=== PATIENT | female | born 1950 | race Caucasian/White ===

== ENCOUNTER 2025-05-24 04:26 | Inpatient (IN) | payer BC, OTHER ==
[~2025-05-24] VITALS: Ht 165.1 cm; Wt 98.7 kg
[2025-05-24] VITALS (12 sets, daily range): BP systolic 100–131; BP diastolic 54–70; PULSE 60–87; RESP 14–19; TEMP 97.6–98; O2SAT 92–97
[~2025-05-24 04:26] MED LIST: ATEN-60 PO; HYDR12.59 PO
--- NOTE | 2025-05-24 05:16 | DVH ---
Exam: CT CT AB PEL WO CON-NO ORAL OR IV History: L pelvic pain Comparison Study: CT CT AB PEL WO CON-NO ORAL OR IV on DOS: 02/24/25, ABPL on DOS: 01/30/22, ABPL on DO S: 07/15/21, ABPL on DOS: 04/03/21 Technique: Multidetector spiral CT of the abdomen was performed from lung bases to pubic symphysis. I maging was performed without IV contrast. Axial, coronal and sagittal multiplanar reformats were obta ined from the axial data set by the technologist. Radiation Dose : 1. Abdomen/Pelvis: CTDIvol 21.41 mGy, DLP 1114.55 mGy*cm. Findings: Evaluation of solid organs is limited due to lack of intravenous contrast use. Lung Bases: Dependent atelectasis. Normal heart size. Cardiomegaly. No pleural or pericardial effusio n. Liver: The liver is normal in size. No focal lesions. Gallbladder and Biliary Tree: Cholelithiasis. Spleen: Unremarkable. Pancreas: The pancreas is grossly normal in appearance. Adrenal Glands: Unremarkable. Kidneys: Moderate left hydroureteronephrosis with distal left ureteral stone obstructing which measur es 0.6 cm (HU 158). Few additional nonobstructing stones are present in the left kidney. Bladder: Grossly unremarkable for degree of distention. Bowel: The stomach is grossly normal in appearance. Colonic diverticulosis. Small bowel and colon are normal in caliber and distribution. The appendix is not visualized; however, no secondary findings o f acute appendicitis identified. Ascites: Absent. Lymphadenopathy: No mesenteric, retroperitoneal or periportal lymphadenopathy. Abdominal Wall and Mesentery: Small fat containing umbilical hernia. Vasculature: Vascular calcifications of the aorta. The visualized abdominal aorta is normal in size a nd caliber. Evaluation of abdominal and pelvic vessels is limited due to lack of intravenous contrast . Pelvic Organs: Unremarkable. Musculoskeletal: Multilevel degenerative changes of the spine. No aggressive focal bony lesions, acut e fractures or dislocation. IMPRESSION: Moderate left hydroureteronephrosis with obstructing distal left ureteral stone measuring 0.6 cm. Cholelithiasis. Colonic diverticulosis. Radiation optimization: All CT scans at this facility use at least one of these dose optimization chantell hniques: automated exposure control mA and/or kV adjustment per patient size (includes targeted exam s where dose is matched to clinical indication) or iterative reconstruction.
--- NOTE | 2025-05-24 05:45 | ED.PDOC ---
General HPI Comments 74-year-old female presented to the ER for the evaluation of left flank pain started 2 hours back. Patient reports intractable left-sided pain associated nausea and vomiting, 1 X, nonbloody for the past 2 hours, she has a kidney stone in the past, pain is radiating to the back, also reports chills but denies fever at this time. Pain is sharp and reports 9/10 in intensity, patient has a moderate distress. Denies constipation, diarrhea, sick contacts, travel history. She also reports that she has been unable to void or defecate for the past 6 hours, she has the urge she could not urinate or defecate. Denies shortness of breath, orthopnea, cough. Denies dysuria, hematuria. Past medical history: Hypertension, left ureteral stones Patient seen and examined. Patient has left-sided CVA tenderness and left-sided flank tenderness. CT abdomen shows obstructing calculus. Chest x-ray pending. Patient has bilateral crackles and wheezing on auscultation. Chief Complaint: Pelvic Pain Time Seen by MD: 04:49 Reviewed notes: Nurses Notes Allergies: Coded Allergies: Codeine (Verified Allergy, Unknown, 02/16/22) Penicillins (Verified Allergy, Unknown, 02/16/22) Tetracycline (Verified Allergy, Unknown, 02/16/22) Home Meds Reported Medications Atenolol (Atenolol) 25 Mg Tab, 25 MG PO BID for 30 Days, MG 07/15/21 Hydrochlorothiazide (Hydrochlorothiazide) 12.5 Mg Cap, 1 CAP PO HS, #30 CAP 5 Refills 07/15/21 Information Source: Patient Mode of Arrival: Ambulatory Severity: Moderate Past Medical History Past Medical History (Other): Hypertension, ureteral stones Constitutional: reports: chills EENTM: denies: blurred vision, double vision, ear bleeding, ear discharge, ear drainage, ear pain, ear ringing, eye pain, eye redness, hearing loss, mouth pain, mouth swelling, nasal discharge, nose bleeding, nose congestion, nose pain, photophobia, tearing, throat pain, throat swelling, voice changes, others Respiratory: denies: cough, hemoptysis, orthopnea, SOB at rest, shortness of breath, SOB with excertion, stridor, wheezing, others Cardiovascular: denies: chest pain, dizzy spells, diaphoresis, Dyspnea on exertion, edema, irregular heart beat, left arm pain, lightheadedness, palpitations, PND, syncope, others Gastrointestinal: reports: abdominal pain, nausea, vomiting Genitourinary: reports: flank pain Neurological: denies: dizziness, fainting, headache, left sided numbness, left sided weakness, numbness, paresthesia, pre-existing deficit, right sided numbness, right sided weakness, seizure, speech problems, tingling, tremors, weakness, others Musculoskeletal: denies: back pain, gout, joint pain, joint swelling, muscle pain, muscle stiffness, neck pain, others Integumetry: denies: bruises, change in color, change in hair/nails, dryness, laceration, lesions, lumps, rash, wounds, others Allergic/Immunocompromised: denies: Difficulty Healing, Frequent Infections, Hives, Itching, others Hematologic/Lymphatic: denies: anemia, blood clots, easy bleeding, easy bruisi ng, swollen glands, others Endocrine: denies: excessive hunger, excessive sweating, excessive thirst, exce ssive urination, flushing, intolerance to cold, intolerance to heat, unexplained weight gain, unexplained weight loss, others Psychiatric: denies: anxiety, bipolar disorder, depression, hopeless, panic disorder, schizophrenia, sleepless, suicidal, others Physical Exam General Appearance: Moderate Distress HEENT: Cornea (L), Cornea (R) Neck: NOT DONE Respiratory: Crackles, Decreased Breath Sounds, Wheezing Cardiovascular: No Murmur, Regular Rate/Rhythm Breast Exam: Deferred Gastrointestinal: No Organomegaly, No Pulsatile Mass, Normal Bowel Sounds, Soft, Tenderness, Other (Left-sided and CVA tenderness) Genitalia: Deferred Pelvic: Deferred Rectal: Deferred Extremities: No calf tenderness, Normal capillary refill, Normal inspection, Normal range of motion, Non-tender, No pedal edema Neurologic: NOT DONE Cerebellar Function: NOT DONE Reflexes: NOT DONE Skin: Dry Lymphatic: NOT DONE Was a procedure done? Was a procedure done?: No Differential Diagnosis Kidney stone (Female): Musculoskeletal pain, Pancreatitis, Pyelonephritis, Urolithiasis Kidney stone (Male): Urinary obstruction, Urolithiasis Urinary Problem (Male): Bladder Outlet, Bladder Obstruction X-Ray, Labs, Meds, VS Vital Signs Date Time Temp Pulse Resp B/P (MAP) Pulse Ox O2 Delivery O2 Flow Rate FiO2 05/24/25 04:28 97.7 57 20 153/100 99 97.7 Lab Test 05/24/25 05:24 Range/Units White Blood Count Pending Red Blood Count Pending Hemoglobin Pending Hematocrit Pending Mean Corpuscular Volume Pending Mean Corpuscular Hemoglobin Pending Mean Corpuscular Hemoglobin Concent Pending Red Cell Distribution Width Pending Platelet Count Pending Mean Platelet Volume Pending Neutrophils (%) (Auto) Pending Lymphocytes (%) (Auto) Pending Monocytes (%) (Auto) Pending Basophils (%) (Auto) Pending Neutrophils # (Auto) Pending Lymphocytes # (Auto) Pending Monocytes # (Auto) Pending Sodium Level Pending Potassium Level Pending Chloride Level Pending Carbon Dioxide Level Pending Anion Gap Pending Blood Urea Nitrogen Pending Creatinine Pending Glomerular Filtration Rate Calc Pending BUN/Creatinine Ratio Pending Serum Glucose Pending Lactic Acid Level Pending Calcium Level Pending Total Bilirubin Pending Aspartate Amino Transferase (AST) Pending Alanine Aminotransferase (ALT) Pending Alkaline Phosphatase Pending B-Type Natriuretic Peptide Pending Total Protein Pending Albumin Pending X-Ray, Labs, Meds, VS Comment CT abdomen shows Moderate left hydroureteronephrosis with obstructing distal left ureteral stone measuring 0.6 cm. Cholelithiasis. Colonic diverticulosis. Radiation optimization: All CT scans at this facility use at least one of these dose optimization techniques: automated exposure control mA and/or kV adjustment per patient size (includes targeted exams where dose is matched to clinical indication) or iterative reconstruction. Images Reviewed?: Images reviewed and evaluated by me Time of 1ST Reevaluation: 05:30 Reevaluation 1ST: Unchanged Time of 2ND Reevaluation: 06:00 Reevaluation 3RD: Unchanged Consultation: PCP Patient Education/Counseling: Diagnosis, Treatment Family Education/Counseling: Diagnosis, Treatment SEPSIS Sepsis Screen Date sepsis recognized/suspect: May 24, 2025 Time Sepsis recognized/suspect: 043 Recent Procedure: No On Antibiotic Therapy: No Respiratory Rate >20: No Heart Rate >90: No Temp<36 C (96.8 F) or >38.3 C: No SBP <90 or MAP <65 mmHG: No New Acute Mental Status Change: No Is the patient on CPAP, BIPAP,: No Physician Orders Ct Ab Pel Wo Con-No Oral Or Iv (05/24/25 04:33) Comprehensive Metabolic Panel (05/24/25 04:35) Complete Blood Count (05/24/25 04:35) Lactic Acid W/ Reflex Order (05/24/25 04:35) Urine Dip (05/24/25 ) Process Designer (05/24/25 ) B-Type Natriuretic Peptide (05/24/25 05:01) Vital Signs Date Time Temp Pulse Resp B/P (MAP) Pulse Ox O2 Delivery O2 Flow Rate FiO2 05/24/25 04:28 97.7 57 20 153/100 99 97.7 Laboratory Tests Test 05/24/25 05:24 Lactic Acid Level Pending White Blood Count Pending Departure 1 Departure Time of Disposition: 05:56 Impression: Primary Impression: Obstruction of left ureter Additional Impressions: Left flank pain Kidney stone Hydronephrosis Disposition: ADMITTED INPATIENT Condition: Fair Comments Patient will be admitted to this facility for workup of left-sided obstructive uropathy. With hydronephrosis. Critical Care Note Critical Care Time?: No Stability Stability form required: MARIO Mcdaniel RESIDENT May 24, 2025 05:45
[2025-05-24] MEDS: HYDROcodone-ACET 5/325MG TAB PO ONE (05:51)
[2025-05-24] MEDS: TAMSULOSIN HYDROCHLORIDE 0.4 MG CAP PO ONE (05:51)
[2025-05-24] MEDS: fentaNYL CITRATE 100 MCG/2 ML VL IV ONE (06:05)
[2025-05-24 06:19] LABS: Hematocrit 47.3 % (36.0-46.0); Hemoglobin 16.4 g/dL (12.2-16.2); Mean Corpuscular Hemoglobin 32.8 pg (28.0-32.0); Mean Corpuscular Volume 94.5 fL (80.0-100.0); Nucleated Red Blood Cells % 0.0 %
[2025-05-24 06:32] LABS: Alanine Aminotransferase 38 U/L (7-40); Albumin 4.5 g/dL (3.2-4.8); Alkaline Phosphatase 109 U/L (46-116); Anion Gap 14 (5-15); BUN/Creatinine Ratio 16.3 (10.0-20.0); Bilirubin, Total 0.6 mg/dL (0.2-1.0); Blood Urea Nitrogen 15 mg/dL (9-23); Calcium 9.9 mg/dL (8.7-10.4); Carbon Dioxide 26 mmol/L (20-31); Chloride 101 mmol/L (98-107); Sodium 141 mmol/L (136-145); Total Protein 7.0 g/dL (5.7-8.2)
[2025-05-24 06:33] LABS: Glucose 248 mg/dL (74-106); Lactic Acid w/Reflex 3.3 mmol/L (0.4-2.0); Potassium 3.5 mmol/L (3.5-5.1)
[2025-05-24] MEDS: SODIUM CHLORIDE 0.9% 1,000 ML IV ONE ×2 (06:50→08:42)
--- NOTE | 2025-05-24 07:45 | DVH ---
CHEST RADIOGRAPH Indication: crackles Technique: Single frontal view of the chest was obtained Comparison: CXRP on DOS: 07/15/21, CXRP on DOS: 06/14/21 FINDINGS: Lines and Tubes: None Lungs: No focal consolidation. Pleura: No effusion. No pneumothorax. Cardiomediastinal contours: Unremarkable Bones: No acute osseous abnormality. IMPRESSION: No acute cardiopulmonary disease.
[2025-05-24 09:11] LABS: Urine Protein, UAD Negative (Negative)
[2025-05-24] MEDS ORDERED: HYDROcodone-ACET 5/325MG TAB PO PRN (09:30)
[2025-05-24] MEDS ORDERED: NITROGLYCERIN 0.4 MG SL TAB SL PRN (09:30)
[2025-05-24] MEDS ORDERED: MORPHINE SULFATE 4 MG/ML SYR/VIAL IV PRN (10:00)
[2025-05-24] MEDS: ONDANSETRON HCL 4 MG/2 ML VIAL IV PRN (10:00)
[2025-05-24] MEDS: MORPHINE SULFATE 4 MG/ML SYR/VIAL IV PRN (10:00)
[2025-05-24] MEDS: SODIUM CHLORIDE 0.9% 1,000 ML IV SCH (10:07)
[2025-05-24 10:37] LABS: INR 1.06 (0.9-1.15); Partial Thromboplastin Time 26.0 SEC (24.5-34.5); Prothrombin Time 11.2 sec (9.3-11.8)
[2025-05-24] MEDS ORDERED: IODIXANOL 320MG/ML 100ML BTL IV ONE (13:55)
[2025-05-24] MEDS ORDERED: fentaNYL CITRATE 100 MCG/2 ML VL ONE (13:57)
[2025-05-24] MEDS ORDERED: LIDOCAINE 2%HCL (LOCAL ANESTH.) INJ 20ML MDV ONE (13:58)
[2025-05-24] MEDS ORDERED: MIDAZOLAM HCL 2MG/2ML 2ml VIAL (1mg/ml) ONE (13:58)
--- NOTE | 2025-05-24 14:58 | DVH ---
XY PERCUTANEOUS NEPHROSTOMY, HISTORY: NEPHRO TUBE PLACEMENT for obstructive uropathy from a left ureteral stone with hydronephrosi s. PROCEDURE: Informed consent was obtained. The patient was placed on the fluoroscopic table in a prone position and IV sedation administered. The left flank was prepped with chlorhexidine which was allow ed to dry and draped in the usual sterile fashion. Time out was performed. and the soft tissues infil trated with 1% lidocaine local anesthetic. Utilizing ultrasound guidance, a 21 gauge Chiba needle was advanced from a posterolateral approach into an lower pole calyx, and a small amount of contrast was injected under fluoroscopy to confirm positioning. Over a mandril wire, exchange was made to a non-v ascular access set, through which was advanced an 0.035 wire. Following serial dilation, an 8.5 frenc h multipurpose nephrostomy catheter was placed with tip pigtailed within the renal pelvis. Position w as confirmed with antegrade nephrostogram. The catheter was secured in place and connected to gravity drainage. A sterile dressing was applied. No immediate complication was identified. DAP 350 FLUOROSCOPY TIME: 1.7 minutes. CONTRAST USED: 15 mL. SEDATION: Dr. Kevin Martell was personally responsible for the administration of moderate sedation during the procedure performed, including the use of an independent trained observer who had no other duties during the procedure. The drugs utilized were IV fentanyl and versed (see nursing log for details). The total time of supervision by the attending physician was approximately 30 minutes. FINDINGS: Moderate left hydronephrosis involving the calyces/renal pelvis/ureter. New 8.5 [place] ne phrostomy tube via a posterior mid/lower pole calyceal access, with loop coiled within the renal pelv is. IMPRESSION: Left hydronephrosis due to obstructive ureteral stone, status post placement of 8.5 [place] left per cutaneous nephrostomy catheter. PLAN: Routine catheter care.
--- NOTE | 2025-05-24 14:58 | DVH ---
XY PERCUTANEOUS NEPHROSTOMY, HISTORY: NEPHRO TUBE PLACEMENT for obstructive uropathy from a left ureteral stone with hydronephrosi s. PROCEDURE: Informed consent was obtained. The patient was placed on the fluoroscopic table in a prone position and IV sedation administered. The left flank was prepped with chlorhexidine which was allow ed to dry and draped in the usual sterile fashion. Time out was performed. and the soft tissues infil trated with 1% lidocaine local anesthetic. Utilizing ultrasound guidance, a 21 gauge Chiba needle was advanced from a posterolateral approach into an lower pole calyx, and a small amount of contrast was injected under fluoroscopy to confirm positioning. Over a mandril wire, exchange was made to a non-v ascular access set, through which was advanced an 0.035 wire. Following serial dilation, an 8.5 frenc h multipurpose nephrostomy catheter was placed with tip pigtailed within the renal pelvis. Position w as confirmed with antegrade nephrostogram. The catheter was secured in place and connected to gravity drainage. A sterile dressing was applied. No immediate complication was identified. DAP 350 FLUOROSCOPY TIME: 1.7 minutes. CONTRAST USED: 15 mL. SEDATION: Dr. Kevin Martell was personally responsible for the administration of moderate sedation during the procedure performed, including the use of an independent trained observer who had no other duties during the procedure. The drugs utilized were IV fentanyl and versed (see nursing log for details). The total time of supervision by the attending physician was approximately 30 minutes. FINDINGS: Moderate left hydronephrosis involving the calyces/renal pelvis/ureter. New 8.5 [place] ne phrostomy tube via a posterior mid/lower pole calyceal access, with loop coiled within the renal pelv is. IMPRESSION: Left hydronephrosis due to obstructive ureteral stone, status post placement of 8.5 ind[place] left per cutaneous nephrostomy catheter. PLAN: Routine catheter care.
[2025-05-24] MEDS ORDERED: DEXTROSE (50%) 50ML SYRG IV PRN (16:15)
--- NOTE | 2025-05-24 16:17 | DVHHP2 ---
Admitting Diagnosis: Obstructive Uropathy History of Present Illness HPI Patient is a 74-year-old female with past medical history of hypertension who presents with complaints of left flank pain. Imaging via CT abdomen and pelvis revealed moderate left hydronephrosis with obstructing distal left ureteral stone measuring 0.6 cm. Patient was noted to have significant pain. CBC showed leukocytosis of 12. Renal function was within normal limits and not elevated. Lactic acid was elevated at 3.3. Glucose was elevated to 48. Patient was admitted for nephrostomy tube placement per urology recommendations. Home Meds Reported Medications Atenolol (Atenolol) 25 Mg Tab, 25 MG PO BID for 30 Days, MG 07/15/21 Hydrochlorothiazide (Hydrochlorothiazide) 12.5 Mg Cap, 1 CAP PO HS, #30 CAP 5 Refills 07/15/21 Past Medical History Cardiac: HTN Review of Systems Gastrointestinal: Abdominal Pain H&P Exam Vital Signs Vital Signs Date Time Temp Pulse Resp B/P (MAP) Pulse Ox O2 Delivery O2 Flow Rate FiO2 05/24/25 12:00 67 12 127/58 (81) 94 05/24/25 08:50 Room Air* 0 21 05/24/25 08:17 98.1 98.1 General Appeara: Well developed Back Exam: Left CVA tenderness SEPSIS Sepsis Screen Date sepsis recognized/suspect: May 24, 2025 Time Sepsis recognized/suspect: 043 Recent Procedure: No On Antibiotic Therapy: No Respiratory Rate >20: No Heart Rate >90: No Temp<36 C (96.8 F) or >38.3 C: No SBP <90 or MAP <65 mmHG: No New Acute Mental Status Change: No Is the patient on CPAP, BIPAP,: No Physician Orders Admit (05/24/25 09:16) Code Status (05/24/25 09:16) Sodium Chloride 0.9% (05/24/25 09:30) Acetaminophen Tablet (Tylenol Tablet) (05/24/25 09:30) Hydrocodone-Acet 5/325mg Tab ([place] 5/32 (05/24/25 09:30) Ondansetron Hcl (Zofran) (05/24/25 09:30) Complete Blood Count (05/25/25 04:00) Comprehensive Metabolic Panel (05/25/25 04:00) Npo (Nothing By Mouth) Diet (05/24/25 Breakfast) Nitroglycerin Sublingual (Ntrostat Subli (05/24/25 09:30) Stat Ekg For Chest Pain (05/24/25 09:16) Notify Of Changes From Base (05/24/25 09:16) Tool Supervisor For 24 Hours (05/24/25 09:16) Emergency Dysrhythmia Protocol (05/24/25 09:16) Rhythm Strips Once Every Shift (05/24/25 09:16) Oxygen By Nasal Cannula (05/24/25 09:16) * Radiologist Consult (05/24/25 09:16) Morphine Sulfate Injection (05/24/25 10:00) Morphine Sulfate Injection (05/24/25 10:00) Us Guidance For Needle Placeme (05/24/25 13:59) Percutaneous Nephrostomy (05/24/25 14:38) Post Cath Vital Signs Q 15min (05/24/25 15:13) Vital Signs Date Time Temp Pulse Resp B/P (MAP) Pulse Ox O2 Delivery O2 Flow Rate FiO2 05/24/25 12:00 67 12 127/58 (81) 94 05/24/25 12:00 67 05/24/25 11:00 66 16 128/62 05/24/25 10:00 71 12 130/52 (78) 96 05/24/25 10:00 72 18 137/69 05/24/25 08:50 61 19 97 Room Air* 0 21 05/24/25 08:17 98.1 61 19 142/64 (90) 97 98.1 Laboratory Tests Test 05/24/25 05:24 05/24/25 07:28 Lactic Acid Level 3.3 mmol/L (0.4-2.0) *H 2.8 mmol/L (0.4-2.0) *H White Blood Count 12.0 10^3/uL (4.4-10.8) H Medications Medications Dose Ordered Sig/Jh Route Start Time Stop Time Status Last Admin Dose Admin Acetaminophen/ Hydrocodone Bitart 1 tab ONCE ONCE PO 05/24/25 05:15 05/24/25 05:16 DC 05/24/25 05:51 1 TAB Ceftriaxone Sodium 50 ml @ 100 mls/hr ONCE ONCE IV 05/24/25 06:15 05/24/25 06:44 DC 05/24/25 08:20 100 MLS/HR Fentanyl Citrate 100 mcg ONCE ONCE IV 05/24/25 05:30 05/24/25 05:31 DC 05/24/25 06:05 100 MCG Morphine Sulfate 2 mg Q4HPRN PRN IV 05/24/25 10:00 05/24/25 10:00 2 MG Ondansetron HCl 4 mg Q4HP PRN IV 05/24/25 09:30 05/24/25 10:00 4 MG Sodium Chloride 1,000 ml @ 60 mls/hr [id number] IV 05/24/25 09:30 05/24/25 10:07 60 MLS/HR Sodium Chloride 1,000 ml @ 1,000 mls/hr Q1H ONCE IV 05/24/25 06:45 05/24/25 07:44 DC 05/24/25 06:50 1,000 MLS/HR Sodium Chloride 1,000 ml @ 1,000 mls/hr Q1H ONCE IV 05/24/25 08:15 05/24/25 09:14 DC 05/24/25 08:42 1,000 MLS/HR Tamsulosin HCl 0.4 mg ONCE ONCE PO 05/24/25 05:15 05/24/25 05:16 DC 05/24/25 05:51 0.4 MG Labs/Xrays Labs Test 05/24/25 10:04 05/24/25 08:03 05/24/25 07:28 05/24/25 05:24 Range/Units Prothrombin Time 11.2 9.3-11.8 sec Prothrombin Time INR 1.06 0.9-1.15 Activated Partial Thromboplast Time 26.0 24.5-34.5 SEC Urine Color Light-yellow Yellow Urine Clarity Turbid H Clear Urine pH 7.0 5.0-9.0 Urine Specific [place] 1.018 1.001-1.035 Urine Protein Negative Negative Urine Ketones 1+ H Negative Urine Blood 3+ H Negative /uL Urine Nitrite Negative Negative Urine Bilirubin Negative Negative Urine Urobilinogen Normal Negative mg/dL Urine Leukocyte Esterase Trace Negative /uL Urine Glucose 3+ H Normal mg/dL Lactic Acid Level 2.8 *H 0.4-2.0 mmol/L White Blood Count 12.0 H 4.4-10.8 10^3/uL Red Blood Count 5.01 4.0-5.20 10^6/uL Hemoglobin 16.4 H 12.2-16.2 g/dL Hematocrit 47.3 H 36.0-46.0 % Mean Corpuscular Volume 94.5 80.0-100.0 fL Mean Corpuscular Hemoglobin 32.8 H 28.0-32.0 pg Mean Corpuscular Hemoglobin Concent 34.7 32.0-36.0 g/dL Red Cell Distribution Width 12.5 11.8-14.3 % Platelet Count 191 140-450 10^3/uL Mean Platelet Volume 9.5 6.9-10.8 fL Neutrophils (%) (Auto) 79.5 37.0-80.0 % Lymphocytes (%) (Auto) 13.8 10.0-50.0 % Monocytes (%) (Auto) 5.0 0.0-12.0 % Eosinophils (%) (Auto) 1.2 0.0-7.0 % Basophils (%) (Auto) 0.5 0.0-2.0 % Neutrophils # (Auto) 9.5 H 1.6-8.6 10 ^3/uL Lymphocytes # (Auto) 1.7 0.4-5.4 10 ^3/uL Monocytes # (Auto) 0.6 0-1.3 10 ^3/uL Eosinophils # (Auto) 0.1 0-0.8 10 ^3/uL Basophils # (Auto) 0.1 0-0.2 10 ^3/uL Nucleated Red Blood Cells 0.0 % Sodium Level 141 136-145 mmol/L Potassium Level 3.5 3.5-5.1 mmol/L Chloride Level 101 98-107 mmol/L Carbon Dioxide Level 26 20-31 mmol/L Anion Gap 14 5-15 Blood Urea Nitrogen 15 9-23 mg/dL Creatinine 0.92 0.550-1.02 mg/dL Glomerular Filtration Rate Calc 66 >90 mL/min BUN/Creatinine Ratio 16.3 10.0-20.0 Serum Glucose 248 H 74-106 mg/dL Calcium Level 9.9 8.7-10.4 mg/dL Total Bilirubin 0.6 0.2-1.0 mg/dL Aspartate Amino Transferase (AST) 37 13-40 U/L Alanine Aminotransferase (ALT) 38 7-40 U/L Alkaline Phosphatase 109 46-116 U/L B-Type Natriuretic Peptide 27.45 0-100 pg/mL Total Protein 7.0 5.7-8.2 g/dL Albumin 4.5 3.2-4.8 g/dL Assessment/Plan Primary Diagnosis 1. Obstructive Uropathy due to Nephrolithiasis 2. Hypertension 3. Morbid Obesity 4. Hyperglycemia 5. Hypertension Plan Plan: -Interventional radiology consulted for left nephrostomy tube placement - Discussed plan of care with urology, Dr. Sharp who recommended outpatient follow-up for lithotripsy - Ceftriaxone 1 g IV daily. Patient reports penicillin allergy but tolerated ceftriaxone dose without complication. Will continue to monitor. - Flomax 0.4 mg daily - Strict I's and O's - Pain medications as listed per MAR - Urine cultures ordered - Hemoglobin A1c ordered due to hyperglycemia. Insulin ordered - Full code - Daily CBC and BMP Plan discussed with: Patient SHADINASEEM Youssef DO May 24, 2025 16:17
[2025-05-24] MEDS: ACCU-CHEK COMFORT CURVE STRIP VI SCH (18:18)
[2025-05-24] MEDS: InsuLIN REG 1unit/0.01ml Soln (100units/ml) SC SCH (18:19)
[2025-05-24] MEDS: TAMSULOSIN HYDROCHLORIDE 0.4 MG CAP PO SCH (18:20)
[2025-05-24] MEDS: INSULIN LANTUS (GLARGINE) 1 /0.01ml (100units/ml) SC SCH (21:41)
[2025-05-25] MEDS: ACETAMINOPHEN 325 MG TAB PO PRN (00:12)
[2025-05-25 01:00] VITALS: BP 111/57; PULSE 73; RESP 18; TEMP 98.1; O2SAT 93
[2025-05-25 05:00] VITALS: BP 112/59; PULSE 67; RESP 18; TEMP 98.4; O2SAT 91
[2025-05-25 06:39] LABS: Hematocrit 39.3 % (36.0-46.0); Hemoglobin 13.8 g/dL (12.2-16.2); Mean Corpuscular Hemoglobin 33.4 pg (28.0-32.0); Mean Corpuscular Volume 95.5 fL (80.0-100.0); Nucleated Red Blood Cells % 0.1 %
[2025-05-25 07:04] LABS: Alanine Aminotransferase 24 U/L (7-40); Albumin 3.5 g/dL (3.2-4.8); Alkaline Phosphatase 67 U/L (46-116); Anion Gap 12 (5-15); BUN/Creatinine Ratio 21.5 (10.0-20.0); Bilirubin, Total 0.9 mg/dL (0.2-1.0); Blood Urea Nitrogen 17 mg/dL (9-23); Carbon Dioxide 27 mmol/L (20-31); Chloride 102 mmol/L (98-107); Sodium 141 mmol/L (136-145)
[2025-05-25 07:05] LABS: Calcium 8.3 mg/dL (8.7-10.4); Glucose 146 mg/dL (74-106); Potassium 3.1 mmol/L (3.5-5.1); Total Protein 5.5 g/dL (5.7-8.2)
[2025-05-25] MEDS ORDERED: LEVO500T91 PO (07:29)
--- NOTE | 2025-05-25 07:41 | DVHDS2 ---
New Physician D'charge PN Admitting Diagnosis Admitting Diagnosis kidney stone Discharge Diagnosis nephrolithiasis s/p PNT placement Operations or Procedures PNT placement by IR Reason(s) For Hospitalization Surgery Hospital Course 74 F who comes to ER with L flank pain. CT abdomen showed L obstructing stone and hydronephrosis moderate, please refer to the full CT report for details. She was admitted and started on IVF hydration and IV ABx, Urology recommended IR placement of percutaneous nephrostomy tube which was done yesterday, PNT is draining appropriately and WBC nml this AM with preserved renal function. Urology recommends outpt follow up with [facility] and for now patient will dc home with PNT in place, [facility] to arrange for all outpt follow up and scripts for PO Abx sent to patients pharmacy on file. Treatment Plan Discharge Condition of Discharge Good Disposition Home with Health Services Discharge Instructions Diet: Cardiac 2g Na,low cholest Activity: No Restrictions, As Tolerated Medications: see med sheet Follow Up Care Follow Up/Referral: pcp urology Discharge Statement: "Patient was advised to return to the ER or call 911 if any headaches, dizziness, shortness of breath, chest pain, abdominal pain, bleeding, fevers, or worsening of medical condition. Patient was counseled about treatment plan, medications, possible side effects, patientverbalized understanding. All questions were answered to the best of my ability. This discharge took greater then 30 minutes in planning, reviewing documentation, counseling the patient, and discussing with other team members." CARLITO VILLARREAL MD May 25, 2025 07:41
[2025-05-25 09:00] VITALS: BP 135/94; PULSE 98; RESP 20; TEMP 97.4; O2SAT 94
[2025-05-25] MEDS: POTASSIUM CHL 20 Meq TABLET PO ONE (10:49)
[2025-05-25 12:45] VITALS: BP 122/65; PULSE 69; RESP 17; TEMP 36.3; O2SAT 96
[2025-05-25 13:00] VITALS: BP 135/78; PULSE 76; RESP 17; TEMP 98.2; O2SAT 95
== END 2025-05-25 15:45 | disposition home or self-care (01) | DRG 694 ==
LOC: ER 04:26 → OVERFLOW 09:16 → EAST 17:28
PROVIDERS: ADMIT Student in an Organized Health Care Education/Training Program; ATTEND Student in an Organized Health Care Education/Training Program
PROC: 0T9130Z Drainage of Left Kidney with Drainage Device, Percutaneous Approach (ICD-10-PCS; principal; 2025-05-24)
PROC: BT12YZZ Fluoroscopy of Left Kidney using Other Contrast (ICD-10-PCS; 2025-05-24)
DX: N13.2 Hydronephrosis with renal and ureteral calculous obstruction (principal); E66.01 Morbid (severe) obesity due to excess calories; I10 Essential (primary) hypertension; R73.9 Hyperglycemia, unspecified; Z88.0 Allergy status to penicillin; Z79.899 Other long term (current) drug therapy; Z88.1 Allergy status to other antibiotic agents; Z88.5 Allergy status to narcotic agent; R39.852 Costovertebral (angle) tenderness, left side; Z87.442 Personal history of urinary calculi; Z68.36 Body mass index [BMI] 36.0-36.9, adult
CPT/HCPCS: 36415; 71045; 74176; 74425; 76942; 80053; 81003; 82962; 83036; 83605; 83880; 85025; 85610; 85730; 87040; 96365; 96375; 99152; G0378; J1815; J2250; J2405; Q9967

== ENCOUNTER 2025-06-01 07:08 | Emergency (ER) | payer BC ==
[~2025-06-01] VITALS: Ht 165.1 cm; Wt 94.5 kg
[~2025-06-01 07:08] MED LIST changes: +LEVO500T91 PO
--- NOTE | 2025-06-01 07:39 | ED.PDOC ---
General HPI Comments 74 y/o F, with PMHx of kidney stones presents to the ED for CC of hematuria. Patient states, she recently underwent a lithotripsy procedure on 05/25/25 and has now been experiencing hematuria sudden onset, 0530 this morning (06/01/25). Patient relays, following procedure to have had no urinary symptoms up until today (06/01/25). Patient denies dysuria, abdominal pain, back pain, fever or flank pain. No other symptoms or modifying factors are present at this time. Chief Complaint: Urinary Time Seen by MD: 07:30 Reviewed notes: Nurses Notes, Medications, Allergies Allergies: Coded Allergies: Codeine (Verified Allergy, Unknown, 02/16/22) Erythromycin (Unverified Allergy, Unknown, 02/24/25) Penicillins (Verified Allergy, Unknown, 02/16/22) Tetracycline (Verified Allergy, Unknown, 02/16/22) Home Meds Active Scripts Levofloxacin Hemihydrate (LEVAQUIN 500 MG) 500 Mg Tab, 1 TAB PO DAILY, #10 TAB Prov:CARLITO VILLARREAL MD 05/25/25 Reported Medications Atenolol (Atenolol) 25 Mg Tab, 25 MG PO BID for 30 Days, MG 07/15/21 Hydrochlorothiazide (Hydrochlorothiazide) 12.5 Mg Cap, 1 CAP PO HS, #30 CAP 5 Refills 07/15/21 Information Source: Patient Mode of Arrival: Ambulatory Severity: Moderate Timing: Hours Duration: Since onset Prehospital treatment: None Onset: Spontaneous Symptoms: Hematuria History of: None Location: None Modifying factors: None associated signs and symptoms: Hematuria Past Medical History PAST MEDICAL HISTORY: Kidney Stones Surgical History: Denies all surgeries WHE[employer] History: Denies all 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 Family History Family History: Unknown Social History Smoker: Non-Smoker Alcohol: Denies ETOH Use Drugs: Denies Drug Use Lives In: Home Constitutional: denies: chills, diaphoresis, fatigue, fever, malaise, sweats, weakness, others EENTM: denies: blurred vision, double vision, ear bleeding, ear discharge, ear drainage, ear pain, ear ringing, eye pain, eye redness, hearing loss, mouth pain, mouth swelling, nasal discharge, nose bleeding, nose congestion, nose pain, photophobia, tearing, throat pain, throat swelling, voice changes, others Respiratory: denies: cough, hemoptysis, orthopnea, SOB at rest, shortness of breath, SOB with excertion, stridor, wheezing, others Cardiovascular: denies: chest pain, dizzy spells, diaphoresis, Dyspnea on exertion, edema, irregular heart beat, left arm pain, lightheadedness, palpitations, PND, syncope, others Gastrointestinal: denies: abdomen distended, abdominal pain, blood streaked bowels, constipated, diarrhea, dysphagia, difficulty swallowing, hematemesis, me manolo, nausea, poor appetite, poor fluid intake, rectal bleeding, rectal pain, vomiting, others Genitourinary: reports: hematuria; denies: abnormal vagina bleeding, burning, dyspareunia, dysuria, flank pain, frequency, incontinence, pain, , vagina discharge, urgency, others Neurological: denies: dizziness, fainting, headache, left sided numbness, left sided weakness, numbness, paresthesia, pre-existing deficit, right sided numbness, right sided weakness, seizure, speech problems, tingling, tremors, weakness, others Musculoskeletal: denies: back pain, gout, joint pain, joint swelling, muscle pain, muscle stiffness, neck pain, others Integumetry: denies: bruises, change in color, change in hair/nails, dryness, laceration, lesions, lumps, rash, wounds, others Allergic/Immunocompromised: denies: Difficulty Healing, Frequent Infections, Hives, Itching, others Hematologic/Lymphatic: denies: anemia, blood clots, easy bleeding, easy bruising, swollen glands, others Endocrine: denies: excessive hunger, excessive sweating, excessive thirst, excessive urination, flushing, intolerance to cold, intolerance to heat, unexplained weight gain, unexplained weight loss, others Psychiatric: denies: anxiety, bipolar disorder, depression, hopeless, panic disorder, schizophrenia, sleepless, suicidal, others All Other Systems: Reviewed and Negative Physical Exam General Appearance: Moderate Distress HEENT: Normal ENT Inspection, Pharynx Normal, TMs Normal Neck: Full Range of Motion, Non-Tender, Normal, Normal Inspection Respiratory: Chest Non-Tender, Lungs Clear, No Accessory Muscle Use, No Respiratory Distress, Normal Breath Sounds Cardiovascular: No Edema, No JVD, No Murmur, No Gallop, Normal Peripheral Pulses, Regular Rate/Rhythm Breast Exam: Deferred Gastrointestinal: No Organomegaly, Non Tender, No Pulsatile Mass, Normal Bowel Sounds, Soft Genitalia: Deferred Pelvic: Deferred Rectal: Deferred Extremities: No calf tenderness, Normal capillary refill, Normal inspection, Normal range of motion, Non-tender, No pedal edema Musculoskeletal : Apperance: Normal Neurologic: Alert, vest finisher II-XII nml as Tested, No Motor Deficits, Normal Affect, Normal Mood, No Sensory Deficits Cerebellar Function: Normal Reflexes: Normal Skin: Dry, Normal Color, Warm Peripheral Pulses: 3+ Radial (R), 3+ Radial (L) Lymphatic: No Adenopathy Was a procedure done? Was a procedure done?: No Differential Diagnosis Kidney stone (Female): Pyelonephritis, Urinary obstruction, Urolithiasis X-Ray, Labs, Meds, VS Vital Signs Date Time Temp Pulse Resp B/P (MAP) Pulse Ox O2 Delivery O2 Flow Rate FiO2 06/01/25 07:17 97.5 62 20 153/87 96 97.5 Lab Test 06/01/25 08:29 06/01/25 07:51 Range/Units Urine Color Light-red Yellow Urine Clarity Ex.turbid Clear Urine pH 6.0 5.0-9.0 Urine Specific [place] 1.013 1.001-1.035 Urine Protein 1+ H Negative Urine Ketones Negative Negative Urine Blood 3+ H Negative /uL Urine Nitrite Negative Negative Urine Bilirubin Negative Negative Urine Urobilinogen Normal Negative mg/dL Urine Leukocyte Esterase 1+ Negative /uL Urine RBC 99999 0 - 4 /hpf Urine WBC Clumps Present None Seen /hpf Urine Microscopic WBC 551 H 0-5 /HPF Urine Squamous Epithelial Cells Mod <5 /hpf Urine Bacteria None seen None Seen /hpf Urine Glucose Normal Normal mg/dL White Blood Count 8.2 4.4-10.8 10^3/uL Red Blood Count 4.59 4.0-5.20 10^6/uL Hemoglobin 15.2 12.2-16.2 g/dL Hematocrit 43.8 36.0-46.0 % Mean Corpuscular Volume 95.5 80.0-100.0 fL Mean Corpuscular Hemoglobin 33.2 H 28.0-32.0 pg Mean Corpuscular Hemoglobin Concent 34.8 32.0-36.0 g/dL Red Cell Distribution Width 12.3 11.8-14.3 % Platelet Count 182 140-450 10^3/uL Mean Platelet Volume 9.3 6.9-10.8 fL Neutrophils (%) (Auto) 63.8 37.0-80.0 % Lymphocytes (%) (Auto) 26.8 10.0-50.0 % Monocytes (%) (Auto) 6.1 0.0-12.0 % Eosinophils (%) (Auto) 2.5 0.0-7.0 % Basophils (%) (Auto) 0.8 0.0-2.0 % Neutrophils # (Auto) 5.2 1.6-8.6 10 ^3/uL Lymphocytes # (Auto) 2.2 0.4-5.4 10 ^3/uL Monocytes # (Auto) 0.5 0-1.3 10 ^3/uL Eosinophils # (Auto) 0.2 0-0.8 10 ^3/uL Basophils # (Auto) 0.1 0-0.2 10 ^3/uL Nucleated Red Blood Cells 0.1 % Patient alert. Came in because of blood in the urine. Vitals stable. Answering questions. She was recently seen by her urologist for which she was placed nephrostomy tube. History of kidney stone. Continue taking her antibiotics. Spoke with [facility] physician. [facility] physician did speak to the patient gave discharge instructions. Explained to the patient. Was told to follow up with her primary care physician. Was told to come back if there is any problem. Time of 1ST Reevaluation: 08:00 Reevaluation 1ST: Unchanged Patient Education/Counseling: Diagnosis, Treatment Family Education/Counseling: Diagnosis, Treatment SEPSIS Sepsis Screen Date sepsis recognized/suspect: Jun 01, 2025 Time Sepsis recognized/suspect: 718 Recent Procedure: No On Antibiotic Therapy: No Respiratory Rate >20: No Heart Rate >90: No Temp<36 C (96.8 F) or >38.3 C: No SBP <90 or MAP <65 mmHG: No New Acute Mental Status Change: No Is the patient on CPAP, BIPAP,: No Physician Orders Sodium Chloride 0.9% (06/01/25 10:00) Vital Signs Date Time Temp Pulse Resp B/P (MAP) Pulse Ox O2 Delivery O2 Flow Rate FiO2 06/01/25 07:17 97.5 62 20 153/87 96 97.5 Laboratory Tests Test 06/01/25 07:51 White Blood Count 8.2 10^3/uL (4.4-10.8) Departure 1 Departure Time of Disposition: 07:47 Impression: Primary Impression: UTI (urinary tract infection) Qualified Codes: N30.01 - Acute cystitis with hematuria Disposition: 01 HOME / SELF CARE / HOMELESS Condition: Good Discharged With: Self Critical Care Note Critical Care Time?: No Stability Stability form required: No Heart Score Heart Score: Heart Score Response (Comments) Value History N/A 0 EKG N/A 0 Age N/A 0 Risk Factors N/A 0 Troponin N/A 0 Total 0 I personally scribed for MARYANNE LUDWIG MD ([email or web address]) on 06/01/25 at 07:39. Electronically submitted by Elvira Robins ([email or web address]). MARYANNE LUDWIG MD Jun 01, 2025 07:39
[2025-06-01 08:12] LABS: Hematocrit 43.8 % (36.0-46.0); Hemoglobin 15.2 g/dL (12.2-16.2); Mean Corpuscular Hemoglobin 33.2 pg (28.0-32.0); Mean Corpuscular Volume 95.5 fL (80.0-100.0); Nucleated Red Blood Cells % 0.1 %
[2025-06-01 08:43] LABS: Urine Protein, UAD 1+ (Negative); Urine WBC Clumps PRESENT /hpf (None Seen)
[2025-06-01] MEDS: SODIUM CHLORIDE 0.9% 2,000 ML IV ONE (10:49)
[2025-06-01 11:16] VITALS: BP 132/33; PULSE 58; RESP 18; TEMP 98.1
[2025-06-01 11:20] VITALS: O2SAT 97
--- NOTE | 2025-06-01 11:52 | DVHDS2 ---
Discharge Summary Date of Admission Labs/Diagnostic Data: Laboratory Results Test 06/01/25 08:29 06/01/25 07:51 Urine Color Light-red (Yellow) Urine Clarity Ex.turbid (Clear) Urine pH 6.0 (5.0-9.0) Urine Specific [place] 1.013 (1.001-1.035) Urine Protein 1+ (Negative) Urine Ketones Negative (Negative) Urine Blood 3+ /uL (Negative) Urine Nitrite Negative (Negative) Urine Bilirubin Negative (Negative) Urine Urobilinogen Normal mg/dL (Negative) Urine Leukocyte Esterase 1+ /uL (Negative) Urine RBC 31022 /hpf (0 - 4) Urine WBC Clumps Present /hpf (None Seen) Urine Microscopic WBC 551 /HPF (0-5) Urine Squamous Epithelial Cells Mod /hpf (<5) Urine Bacteria None seen /hpf (None Seen) Urine Glucose Normal mg/dL (Normal) White Blood Count 8.2 10^3/uL (4.4-10.8) Red Blood Count 4.59 10^6/uL (4.0-5.20) Hemoglobin 15.2 g/dL (12.2-16.2) Hematocrit 43.8 % (36.0-46.0) Mean Corpuscular Volume 95.5 fL (80.0-100.0) Mean Corpuscular Hemoglobin 33.2 pg (28.0-32.0) Mean Corpuscular Hemoglobin Concent 34.8 g/dL (32.0-36.0) Red Cell Distribution Width 12.3 % (11.8-14.3) Platelet Count 182 10^3/uL (140-450) Mean Platelet Volume 9.3 fL (6.9-10.8) Neutrophils (%) (Auto) 63.8 % (37.0-80.0) Lymphocytes (%) (Auto) 26.8 % (10.0-50.0) Monocytes (%) (Auto) 6.1 % (0.0-12.0) Eosinophils (%) (Auto) 2.5 % (0.0-7.0) Basophils (%) (Auto) 0.8 % (0.0-2.0) Neutrophils # (Auto) 5.2 10 ^3/uL (1.6-8.6) Lymphocytes # (Auto) 2.2 10 ^3/uL (0.4-5.4) Monocytes # (Auto) 0.5 10 ^3/uL (0-1.3) Eosinophils # (Auto) 0.2 10 ^3/uL (0-0.8) Basophils # (Auto) 0.1 10 ^3/uL (0-0.2) Nucleated Red Blood Cells 0.1 % Other Laboratory Tests 06/01/25 07:51 Discharge Instruct/Medications Scheduled Atenolol (Atenolol), 25 MG PO BID, (Reported) Hydrochlorothiazide (Hydrochlorothiazide), 1 CAP PO HS, (Reported) Levofloxacin Hemihydrate (Levaquin 500 Mg), 1 TAB PO DAILY Discharge Statement: "Patient was advised to return to the ER or call 911 if any headaches, dizziness, shortness of breath, chest pain, abdominal pain, bleeding, fevers, or worsening of medical condition. Patient was counseled about treatment plan, medications, possible side effects, patientverbalized understanding. All questions were answered to the best of my ability. This discharge took greater then 30 minutes in planning, reviewing documentation, counseling the patient, and discussing with other team members." ASSESSMENT ASSESSMENT Assessment NASEEM HSU DO Jun 01, 2025 11:52
== END 2025-06-01 11:38 | disposition home or self-care (01) ==
LOC: ER 07:08
DX: N39.0 Urinary tract infection, site not specified (principal); Z79.899 Other long term (current) drug therapy; Z87.442 Personal history of urinary calculi; Z88.0 Allergy status to penicillin; Z88.1 Allergy status to other antibiotic agents; Z88.5 Allergy status to narcotic agent
CPT/HCPCS: 36415; 81001; 85025; 96360; 99283; J7030